=== PATIENT | female | born 1990 | race Caucasian/White ===

== ENCOUNTER → 2017-10-01 | Outpatient (CLI) | payer OTHER ==
[2017-10-01 15:11] LABS: BASO % 0.4 % (0.0-1.0); EOS # 0.1 10^3/uL (0.0-0.50); EOS % 0.8 % (0.0-3.0); HEMATOCRIT 37.6 % (36.0-47.0); IMMATURE GRANULOCYTE % 0.1 % (0-3.0); LYMPH % 26.3 % (24.0-44.0); MEAN CORPUSCULAR HEMOGLOBIN 30.7 pg (27.0-33.0); MEAN CORPUSCULAR HGB CONC 34.6 g/dl (32.0-36.5); MEAN CORPUSCULAR VOLUME 88.7 fl (80.0-96.0); MONO # 0.5 10^3/uL (0.0-0.8); NEUTROPHILS # 4.9 10^3/uL (1.8-7.7); NEUTROPHILS % 66.4 % (36.0-66.0); PLATELET COUNT, AUTOMATED 247 10^3/uL (150-450); RED BLOOD COUNT 4.24 10^6/uL (4.00-5.40); RED CELL DISTRIBUTION WIDTH 12.1 % (11.5-14.5); WHITE BLOOD COUNT 7.4 10^3/uL (4.0-10.0)
[2017-10-01 15:49] LABS: ALBUMIN 3.6 GM/DL (3.2-5.2); ALBUMIN/GLOBULIN RATIO 0.92 (1.00-1.93); ALKALINE PHOSPHATASE 45 U/L (45-117); ALT/SGPT 15 U/L (12-78); ANION GAP 9 MEQ/L (8-16); AST/SGOT 12 U/L (7-37); BILIRUBIN,TOTAL 1.4 MG/DL (0.2-1.0); BLOOD UREA NITROGEN 9 MG/DL (7-18); CALCIUM LEVEL 8.6 MG/DL (8.5-10.1); CARBON DIOXIDE LEVEL 27 MEQ/L (21-32); CHLORIDE LEVEL 106 MEQ/L (98-107); CREATININE FOR GFR 0.76 MG/DL (0.55-1.30); GLOMERULAR FILTRATION RATE > 60.0 (>60); GLUCOSE, FASTING 84 MG/DL (70-100); POTASSIUM SERUM 4.2 MEQ/L (3.5-5.1); SODIUM LEVEL 142 MEQ/L (136-145); TOTAL PROTEIN 7.5 GM/DL (6.4-8.2)
[2017-10-04 00:06] LABS: EBV VIRAL CAPSID AG IgG >600.0 U/mL (0.0-17.9)
[2017-10-04 00:06] LABS: EBV VIRAL CAPSID AG IgM <36.0 U/mL (0.0-35.9)
== END ==
LOC: M WUC 14:18
DX: J03.90 Acute tonsillitis, unspecified (principal); R21 Rash and other nonspecific skin eruption
CPT/HCPCS: 80053

== ENCOUNTER 2017-12-30 15:32 | Day surgery (SDC) | payer OTHER ==
[2017-12-30 17:13] LABS: CONTROL LINE HCG INT CTR LINE PRESENT; HCG, SERUM QUALITATIVE NEGATIVE (NEGATIVE)
[2017-12-30 17:18] LABS: BASO % 0.3 % (0.0-1.0); EOS % 0.1 % (0.0-3.0); HEMATOCRIT 36.8 % (36.0-47.0); HEMOGLOBIN 12.7 g/dl (12.0-15.5); IMMATURE GRANULOCYTE % 0.3 % (0-3.0); LYMPH # 0.6 10^3/uL (1.5-6.5); LYMPH % 8.7 % (24.0-44.0); MEAN CORPUSCULAR HEMOGLOBIN 30.4 pg (27.0-33.0); MEAN CORPUSCULAR HGB CONC 34.5 g/dl (32.0-36.5); MONO # 0.6 10^3/uL (0.0-0.8); MONO % 8.7 % (0.0-5.0); NEUTROPHILS # 5.8 10^3/uL (1.8-7.7); NEUTROPHILS % 81.9 % (36.0-66.0); PLATELET COUNT, AUTOMATED 210 10^3/uL (150-450); RED BLOOD COUNT 4.18 10^6/uL (4.00-5.40); RED CELL DISTRIBUTION WIDTH 12.1 % (11.5-14.5)
[2017-12-30] MEDS: NS 1,000 ML IV ×4 (17:18→23:12)
[2017-12-30] MEDS: MORPHINE 2 MG/ML 1ML SYRINGE (J2270) IV ×6 (17:19→23:12)
[2017-12-30 17:20] LABS: INR 1.04; PROTHROMBIN TIME 13.7 SECONDS (12.1-14.4)
[2017-12-30 17:21] LABS: LACTIC ACID SEPSIS PROTOCOL 0.9 MMOL/L (0.4-2.0)
[2017-12-30 17:23] LABS: ALBUMIN 3.5 GM/DL (3.2-5.2); ALBUMIN/GLOBULIN RATIO 0.97 (1.00-1.93); ALKALINE PHOSPHATASE 48 U/L (45-117); ALT/SGPT 18 U/L (12-78); AMYLASE 43 U/L (25-115); ANION GAP 11 MEQ/L (8-16); AST/SGOT 16 U/L (7-37); BILIRUBIN,DIRECT 0.2 MG/DL (0.0-0.2); BILIRUBIN,TOTAL 0.9 MG/DL (0.2-1.0); BLOOD UREA NITROGEN 8 MG/DL (7-18); CALCIUM LEVEL 8.3 MG/DL (8.5-10.1); CARBON DIOXIDE LEVEL 24 MEQ/L (21-32); CHLORIDE LEVEL 103 MEQ/L (98-107); CK-MB VALUE MASS < 1.0 NG/ML (<3.6); CPK CREATINE PHOSPHOKINASE 58 U/L (26-192); CREATININE FOR GFR 0.79 MG/DL (0.55-1.30); GLOMERULAR FILTRATION RATE > 60.0 (>60); GLUCOSE, FASTING 89 MG/DL (70-100); LIPASE 84 U/L (73-393); MB/CK RELATIVE INDEX 1.72 (< OR =4); POTASSIUM SERUM 3.7 MEQ/L (3.5-5.1); SODIUM LEVEL 138 MEQ/L (136-145); TOTAL PROTEIN 7.1 GM/DL (6.4-8.2); TROPONIN I < 0.02 NG/ML (< 0.10)
[2017-12-30 17:24] LABS: PARTIAL THROMBOPLASTIN TIME 32.3 SECONDS (25.4-37.6)
[2017-12-30] MEDS ORDERED: ISOVUE-370 76% 100ML VIAL (Q9967) As Ordered ×2 (17:34)
[2017-12-30 17:39] LABS: KETONE, URINE AUTO RFX NEGATIVE (NEGATIVE); LEUKOCYTE ESTERASE UR AUTO RFX NEGATIVE (NEGATIVE); NITRITE, URINE AUTO RFX NEGATIVE (NEGATIVE); RBC, URINE AUTO RFX 1 /HPF (0-3); SPECIFIC GRAVITY UR AUTO RFX 1.003 (1.002-1.035); SQUAM EPITHELIAL CELL UR AURFX 2 /HPF (0-6); WBC, URINE AUTO RFX 0 /HPF (0-3)
[2017-12-30] MEDS: GASTROGRAFIN SOLUTION 30ML PO ×4 (20:44→21:10)
[2017-12-30 20:56] LABS: CHLAMYDIA DNA AMPLIFICATION NEGATIVE (NEGATIVE); GC DNA AMPLIFICATION NEGATIVE (NEGATIVE)
[2017-12-30] MEDS: ACETAMINOPHEN TAB 650MG DOSE (2X325MG) PO ×2 (22:17)
[2017-12-30] MEDS ORDERED: MORPHINE 2 MG/ML 1ML SYRINGE (J2270) IV ×2 (23:00)
[2017-12-31] MEDS ORDERED: ROCURONIUM BROMIDE 50 MG/5 ML VIAL As Ordered ×2 (01:13)
[2017-12-31] MEDS ORDERED: LIDOCAINE 2% INJ 100 MG/5 ML SDV (FOR ANES.) As Ordered ×2 (01:13)
[2017-12-31] MEDS ORDERED: fentaNYL 100 MCG/2 ML INJECTION (J3010) As Ordered ×6 (01:13→03:10)
[2017-12-31] MEDS ORDERED: ONDANSETRON 4MG/2ML VIAL (J2405) As Ordered ×2 (01:13)
[2017-12-31] MEDS ORDERED: PROPOFOL 200 MG/20 ML VIAL As Ordered ×2 (01:13)
[2017-12-31] MEDS ORDERED: dexameTHASONE 4 MG/ML 1ML VIAL (J1100) As Ordered ×2 (01:13)
[2017-12-31] MEDS ORDERED: MIDAZOLAM INJ 2 MG/2 ML VIAL (J2250) As Ordered ×2 (01:13)
[2017-12-31] MEDS: ACETAMINOPHEN 650 MG SUPP As Ordered ×2 (01:25)
[2017-12-31] MEDS: ceFAZolin 1GM INJ (J0690 PER 500MG) As Ordered ×2 (01:26)
[2017-12-31] MEDS ORDERED: NEOSTIGMINE 10 MG/10 ML VIAL (J2710) As Ordered ×2 (01:50)
[2017-12-31] MEDS ORDERED: GLYCOPYRROLATE INJ 0.2 MG/ML 2 ML VIAL As Ordered ×2 (01:50)
[2017-12-31] MEDS ORDERED: KETOROLAC 60 MG/2 ML VIAL (J1885) As Ordered ×2 (02:52)
[2017-12-31] MEDS: LR 1,000 ML IV ×2 (03:03)
[2017-12-31] MEDS: BUPIVACAINE HCL 0.5% 10 ML VIAL As Ordered ×2 (03:06)
[2017-12-31] MEDS: fentaNYL 100 MCG/2 ML INJECTION (J3010) IV ×8 (03:10→03:34)
[2017-12-31] MEDS: NORCO, ANEXSIA 5/325MG TABLET (HYDROcodone/ACETAMINOPHEN) PO ×4 (03:10→03:55)
[2017-12-31] MEDS ORDERED: NORCO, ANEXSIA 5/325MG TABLET (HYDROcodone/ACETAMINOPHEN) As Ordered ×4 (03:10→03:47)
[2017-12-31] MEDS: ONDANSETRON 4MG/2ML VIAL (J2405) IV ×2 (04:08)
[2017-12-31] MEDS ORDERED: ACETAMINOPHEN TAB 650MG DOSE (2X325MG) PO ×2 (07:45)
[2017-12-31] MEDS: PERCOCET 5MG/325MG TAB PO ×2 (08:10)
[2017-12-31] MEDS: IBUPROFEN 800 MG TAB PO ×2 (12:57)
== END 2017-12-31 14:00 | disposition home or self-care (01) ==
LOC: M SDC 12-31 00:30 → M PED 12-31 14:00 → M SDC 12-31 04:05 → M PED 12-31 04:05 → M SDC 15:34 → M PED 12-31 04:10 → M SDC 12-31 14:00 → M ED 15:32
DX: K35.89 Other acute appendicitis (principal)
CPT/HCPCS: 44970

== ENCOUNTER → 2018-05-14 | Outpatient (REF) | payer OTHER ==
[~2018-05-14] MED LIST: ACET1TAB55 PO; APAP325T4 PO; HAIR1TAB5 PO; MOTR200T44 PO; PERC5TAB12 PO; XULA1DIS TOP
[2018-05-14 23:15] LABS: CHLAMYDIA DNA AMPLIFICATION NEGATIVE (NEGATIVE); GC DNA AMPLIFICATION NEGATIVE (NEGATIVE)
== END ==
LOC: M LAB REF 15:17
PROVIDERS: ATTEND Physician Assistant
DX: Z11.3 Encounter for screening for infections with a predominantly sexual mode of transmission (principal)

== ENCOUNTER → 2018-12-21 | Outpatient (CLI) | payer OTHER ==
--- NOTE | 2018-12-21 14:30 | REP ---
Urinary tract sonogram: History: Back pain and unexplained hematuria at 12 weeks gestation. No history of kidney stones. Comparison: No comparison study. Findings: Scanning at the level of the urinary bladder shows no abnormality. Emptying ureteral jets are confirmed from both ureters on color Doppler interrogation of the bladder lumen. Renal cortical echogenicity pattern is normal bilaterally and contours are smooth. There is no evidence of hydronephrosis, cyst, mass, or calculus in either kidney. The right kidney measures 11.2 x 4.1 x 3.2 cm. Left renal dimensions are 12.5 x 4.5 x 3.7 cm. Impression: Normal urinary tract sonography. Electronically Signed by Moise Aquino MD 12/21/2018 02:21 P
== END ==
LOC: M RAD 13:20
PROVIDERS: ATTEND Registered Nurse Maternal Newborn
DX: M54.9 Dorsalgia, unspecified (principal); R31.9 Hematuria, unspecified

== ENCOUNTER → 2019-03-09 | Outpatient (REF) | payer OTHER | LOC: M LAB REF 08:58 | PROVIDERS: ATTEND Physician Assistant | DX: J02.0 Streptococcal pharyngitis (principal) ==

== ENCOUNTER 2019-06-21 05:37 | Outpatient (CLI) | payer OTHER ==
[~2019-06-21] VITALS: Ht 162.6 cm; Wt 75.5 kg
[2019-06-21 05:56] VITALS: BP 121/69
[2019-06-21] MEDS ORDERED: PRENTAB9 PO (06:38)
[2019-06-21 07:22] VITALS: BP 131/76
[2019-06-21 08:14] VITALS: BP 114/55
--- NOTE | 2019-06-21 14:25 | IPN ---
DATE: 06/21/2019 This lady is a 28-year-old, 2, para 1, LMP 09/21/2019, EDC 06/27/2019, history of prodromal contractions. She was at 0600 hours was 2 cm posterior and she has been like that for 4 hours. Category 1 strip. No vaginal bleeding or loss. Risk factors issues mixed incontinence and in her past history she had what was described here as a borderline PPH although there is no details. Past history in 07/2014 at 42 weeks spontaneous vaginal delivery, female 8 pounds 3 ounces. Labs are A+, HIV negative, hep negative, RPR negative, rubella immune. Varicella immune. Pap normal. Urine negative. Gonorrhea and chlamydia are negative. 1-hour glucose was 103. GBS is negative. She had a spot protein ratio of 0.3 and a 24-hour urine protein of 150. On examination no distress. Symphysis fundus height is 40, vertex OP 2 cm posterior thick. No vaginal bleeding or loss. Category 1 strip. Intermittent contractions. Blood pressure 114/55, respirations 18, pulse 71, temperature 98.4. No urine is available. In summary we have a lady with prodromal labor at 39+ weeks of gestation. Discharge instructions were given. She has an appointment in 3 days with Ronal Betancourt OB she was recommended to return if she has ruptured membranes, contractions 5-7 minutes apart 40 seconds or vaginal bleeding, or decreased movement of less than 10 at 24 hours. The patient expressed understanding. All questions were answered. 40 minute discussion. cc: Ayde Betancourt
[2019-06-22] MEDS ORDERED: MAPA500T2 PO (02:03)
== END 2019-06-21 09:05 | disposition home or self-care (01) ==
LOC: M LDO 05:37
PROVIDERS: ATTEND Obstetrics & Gynecology
DX: O62.2 Other uterine inertia (principal); Z3A.39 39 weeks gestation of pregnancy
CPT/HCPCS: 59025; G0378; G0463

== ENCOUNTER 2019-06-22 01:04 | Inpatient (IN) | payer OTHER ==
[2019-06-22] VITALS (9 sets, daily range): BP systolic 108–147; BP diastolic 57–87
[~2019-06-22] VITALS: Ht 162.6 cm; Wt 75.9 kg
[~2019-06-22 01:04] MED LIST changes: +PRENTAB9 PO
[2019-06-22] MEDS ORDERED: LR 1,000 ML IV SCH ×2 (02:00→03:06)
[2019-06-22] MEDS ORDERED: MAPA500T2 PO (02:03)
[2019-06-22 02:05] LABS: HEMATOCRIT 34.5 % (36.0-47.0); HEMOGLOBIN 11.6 g/dl (12.0-15.5); MEAN CORPUSCULAR HGB CONC 33.6 g/dl (32.0-36.5); MEAN CORPUSCULAR VOLUME 86.3 fl (80.0-96.0); PLATELET COUNT, AUTOMATED 240 10^3/uL (150-450); WHITE BLOOD COUNT 12.4 10^3/uL (4.0-10.0)
[2019-06-22] MEDS ORDERED: OXYTOCIN 30 UNITS IN 0.9% NaCl 500ML IV BAG (J2590) As Ordered ONE (02:14)
[2019-06-22] MEDS ORDERED: PROMETHAZINE INJ 25 MG/ML VIAL (J2550) IM ONE (02:45)
[2019-06-22] MEDS ORDERED: BUTORPHANOL 2 MG/ML INJ (J0595) IV ONE (02:45)
[2019-06-22] MEDS ORDERED: OXYTOCIN INJ 10 UNITS/ML VIAL (J2590) IV ONE (03:15)
[2019-06-22] MEDS ORDERED: METHYLERGONOVINE MALEATE 0.2 MG TAB PO PRN (03:15)
[2019-06-22] MEDS ORDERED: MEASLES,MUMPS,RUBELLA VACCINE INJ (MMR-II) (90707) SC SCH (03:15)
[2019-06-22] MEDS ORDERED: DIBUCAINE 1% OINTMENT 30GM TOP PRN (03:15)
[2019-06-22] MEDS ORDERED: RHOGAM 300 MCG (1500 IU) INJ (J2790) IM SCH (03:15)
[2019-06-22] MEDS ORDERED: ACETAMINOPHEN 500 MG TAB PO PRN (03:15)
[2019-06-22] MEDS ORDERED: ANUSOL HC CREAM 30GM TOP PRN (03:15)
[2019-06-22] MEDS ORDERED: OXYTOCIN DRIP 30 UNITS in IV 1 EA IV ONE (03:15)
[2019-06-22] MEDS ORDERED: MOM 30ML SUSPENSION UDC PO PRN (03:15)
[2019-06-22] MEDS ORDERED: ACETAMINOPHEN TAB 650MG DOSE (2X325MG) PO PRN (03:15)
[2019-06-22] MEDS ORDERED: DOCUSATE SODIUM 100 MG CAP PO PRN (03:15)
[2019-06-22] MEDS ORDERED: IBUPROFEN 600 MG TAB PO PRN (03:15)
[2019-06-22 03:44] LABS: CORD GAS ABE V -2.4; CORD GAS HCO3 V 20.7 MEQ/L; CORD GAS O2 SAT V 66.9 %; CORD GAS PCO2 V 32.1 mmHg; CORD GAS PH V 7.428 UNITS; CORD GAS PO2 V 26.5 mmHg; CORD GAS SBC V 21.6 MEQ/L; CORD GAS TCO2 V 21.7 MEQ/L
[2019-06-22 03:47] LABS: CORD GAS HCO3 A 22.2 MEQ/L; CORD GAS O2 SAT A 46.8 %; CORD GAS PCO2 A 44.8 mmHg; CORD GAS PH A 7.313 UNITS; CORD GAS PO2 A 22.1 mmHg; CORD GAS TCO2 A 23.6 MEQ/L
[2019-06-22] MEDS: IBUPROFEN 800 MG TAB PO PRN (03:50)
[2019-06-22] MEDS ORDERED: OXYTOCIN INJ 10 UNITS/ML VIAL (J2590) As Ordered ONE (04:32)
[2019-06-22] MEDS ORDERED: SLF 3 ML SYR IV PRN (07:45)
[2019-06-22] MEDS: PRENATAL VITAMINS CHEWABLE TABLET PO SCH (08:17)
[2019-06-22] MEDS: SLF 3 ML SYR IV SCH ×3 (08:19→22:00)
--- NOTE | 2019-06-22 11:50 | HPE ---
DATE OF ADMISSION: 06/22/2019 28-year-old 2, para 1, last period 09/20/2018, EDC 06/27/2019 at 39+ weeks of gestation, spontaneous labor, 6 cm with bulging member membranes. Risk factors is has mixed incontinence and had a previous cervical laceration because of uncontrolled pushing. LABORATORIES: A+, HIV negative, hepatitis negative, RPR negative, rubella immune. Varicella immune. Pap normal. Urine negative. Gonorrhea and chlamydia negative. 1-hour glucose 103. GBS is negative. PAST HISTORY: In 2014 at 42 weeks spontaneous vaginal delivery, had a cervical laceration, female 8 pounds 3 ounces. Presently, she is distressed at 8 cm, bulging membranes uncontrollable pushing. Hemoglobin 11.6, hematocrit 34.6, platelets are 240. Blood pressure 130/71, pulse 74, respirations 18, temperature 97.8. We have a term gestation with uncontrolled pushing for imminent delivery.
--- NOTE | 2019-06-22 15:22 | DN ---
DATE: 06/22/2019 A 28-year-old 1, para 1, admitted in active spontaneous labor, involuntarily pushing at 8 cm, at full dilatation. Had spontaneous rupture of membranes. Precipitously delivered a live- female weighing 8 pounds 1 ounce, 3670 grams, scores of 9 and 9 at one and five minutes, respectively. Arterial and venous pH were performed. They are not yet available. Placenta delivered spontaneously thereafter, a 3-vessel cord. Membranes and tissues intact. Baby had terminal meconium and voided at delivery. The uterus contracted well down on Pitocin. She had some bruising in the fourchette but otherwise no tears or lacerations. Sphincter was intact. Anterior, posterior, and lateral souza were intact. The patient and baby tolerating procedure well.
[2019-06-23 06:00] VITALS: BP 116/59
[2019-06-23] MEDS: SLF 3 ML SYR IV SCH ×2 (06:00→14:00)
[2019-06-23] MEDS: PRENATAL VITAMINS CHEWABLE TABLET PO SCH (07:23)
[2019-06-23 07:57] LABS: HEMATOCRIT 31.5 % (36.0-47.0); HEMOGLOBIN 10.4 g/dl (12.0-15.5); MEAN CORPUSCULAR HEMOGLOBIN 29.3 pg (27.0-33.0); MEAN CORPUSCULAR VOLUME 88.7 fl (80.0-96.0); PLATELET COUNT, AUTOMATED 204 10^3/uL (150-450); RED BLOOD COUNT 3.55 10^6/uL (4.00-5.40)
--- NOTE | 2019-06-23 08:31 | IPNPDOC ---
Progress Note Date of Service: Jun 23, 2019 Day#: 1 Progress Note SUBJECT: Corinne is a 28-year-old 2 now Para 2002 status post uncomplicated spontaneous vaginal delivery at 39+1/7 weeks on 22 June 2019 of a female, 3670 grams, intact, doing well day #1. She has been ambulating, voiding spontaneously without issue and tolerating regular diet. Breast feeding without issue, some formula supplementation. Reports lochia is normal. OBJECTIVE: VITAL SIGNS: Within normal limits, afebrile. Alert and oriented times three. Observed nonlabored breathing. Abdomen: Fundus firm at U. Soft, NTTP. Minimal lochia. ASSESSMENT: PP Day #1, normal involution, stable and progressing well. with formula supplementation. Declines BC at this time; will discuss at her PP appointment. PLAN: 1. Discharge to home today. 2. Tylenol and Motrin for pain. 3. Encourage breast feeding and ambulation. 4. Routine PP visit in 6 weeks in clinic. 5. Discussed return precautions at length. VS, I&O, 24H, Fishbone Vital Signs/I&O Vital Signs Date Time Temp Pulse Resp B/P (MAP) Pulse Ox O2 Delivery O2 Flow Rate FiO2 06/23/19 06:00 98.4 70 17 116/59 (78) 97 Room Air I&O- Last 24 Hours up to 6 AM 06/23/19 06:00 Intake Total 360 ml Output Total 900 ml Balance -540 ml Laboratory Data 24H LABS Laboratory Tests 2 06/23/19 07:31: Nucleated Red Blood Cells % (auto) 0.0 CBC/BMP Laboratory Tests 06/23/19 07:31 KARINA BARTH CNM Jun 23, 2019 08:31
[2019-06-23] MEDS ORDERED: IBUP-1022 PO (08:45)
[2019-06-23] MEDS ORDERED: DIBU10OI TOP (08:45)
[2019-06-23] MEDS ORDERED: DOCU100C16 PO (08:45)
[2019-06-23] MEDS ORDERED: ACET1TAB55 PO (08:45)
--- NOTE | 2019-06-23 08:47 | OBDS ---
[facility] Obstetrical Discharge Sum. Obstetrical Discharge Summary Date: Jun 23, 2019 : 2 Term: 2 Pre-term: 0 Abortions: 0 Livin VDRL: Non-Reactive Rubella: Immune Sex: Female Weight: grams (3670) A/P, Post Course List any complications SUBJECT: Corinne is a 28-year-old 2 now Para 2002 status post uncomplicated spontaneous vaginal delivery at 39+1/7 weeks on 22 June 2019 of a female, 3670 grams, intact, doing well day #1. She has been amb ulating, voiding spontaneously without issue and tolerating regular diet. Breast feeding without issue, some formula supplementation. Reports lochia is normal. OBJECTIVE: VITAL SIGNS: Within normal limits, afebrile. Alert and oriented times three. Observed nonlabored breathing. Abdomen: Fundus firm at U. Soft, NTTP. Minimal lochia. ASSESSMENT: PP Day #1, normal involution, stable and progressing well. with formula supplementation. Declines BC at this time; will discuss at her PP appointment. PLAN: 1. Discharge to home today. 2. Tylenol and Motrin for pain. 3. Encourage breast feeding and ambulation. 4. Routine PP visit in 6 weeks in clinic. 5. Discussed return precautions at length. KARINA BARTH CNM Jun 23, 2019 08:46
[2019-06-23] MEDS: IBUPROFEN 800 MG TAB PO PRN (10:08)
== END 2019-06-23 14:05 | disposition home or self-care (01) | DRG 807 ==
LOC: M LDO 01:04 → M LDI 01:39 → M OBS 08:35
PROVIDERS: ADMIT Obstetrics & Gynecology; ATTEND Obstetrics & Gynecology
PROC: 10E0XZZ Delivery of Products of Conception, External Approach (ICD-10-PCS; principal; 2019-06-22)
DX: O62.3 Precipitate labor (principal); Z37.0 Single live birth; Z3A.39 39 weeks gestation of pregnancy

== ENCOUNTER → 2020-06-01 | Outpatient (CLI) | payer SELFPAY ==
[~2020-06-01] MED LIST changes: +DIBU10OI TOP; +DOCU100C16 PO; +IBUP-1022 PO; +MAPA500T2 PO
== END ==
LOC: M LABSMTC 12:14
PROVIDERS: ATTEND Pediatrics
DX: Z20.822 Contact with and (suspected) exposure to COVID-19 (principal)

== ENCOUNTER → 2020-10-24 | Outpatient (CLI) | payer SELFPAY ==
[~2020-10-24] MED LIST changes: -DIBU10OI TOP; +DIBU28OI2 TOP
== END ==
LOC: M LABSMTC 10:07
PROVIDERS: ATTEND Pediatrics
DX: Z20.822 Contact with and (suspected) exposure to COVID-19 (principal)

== ENCOUNTER → 2021-12-20 | Outpatient (CLI) | payer OTHER, SELFPAY ==
[~2021-12-20] MED LIST changes: +CETI10CH PO; +FLUO10CA18 PO; +MULT-40 PO
== END ==
LOC: M LABSMTC 09:50
PROVIDERS: ATTEND Anesthesiology
DX: Z01.818 Encounter for other preprocedural examination (principal); Z11.52 Encounter for screening for COVID-19

== ENCOUNTER 2021-12-23 07:32 | Day surgery (SDC) | payer OTHER ==
[~2021-12-23] VITALS: Ht 162.6 cm; Wt 59.0 kg
[2021-12-23] MEDS ORDERED: LR 1,000 ML IV SCH ×3 (08:05→10:50)
[2021-12-23] MEDS ORDERED: ROCURONIUM BROMIDE 50 MG/5 ML VIAL As Ordered ONE (08:34)
[2021-12-23] MEDS ORDERED: propofoL 200 MG/20 ML VIAL As Ordered ONE (08:34)
[2021-12-23] MEDS ORDERED: fentaNYL 250 MCG/5 ML INJECTION As Ordered ONE (08:34)
[2021-12-23] MEDS ORDERED: MIDAZOLAM INJ 2MG/2ML VIAL (J2250 PER 1MG) As Ordered ONE (08:34)
[2021-12-23] MEDS ORDERED: LIDOCAINE 2% 100MG/5ML SDV (FOR ANES.) As Ordered ONE (08:34)
[2021-12-23] MEDS ORDERED: BUPIVACAINE/EPIN 0.5% 30 ML VIAL As Ordered ONE (10:02)
[2021-12-23] MEDS ORDERED: ACETAMINOPHEN 1000MG 100ML IV BTL (OFIRMEV) (J0131 PER 10MG) As Ordered ONE (10:14)
[2021-12-23] MEDS ORDERED: ONDANSETRON 4MG 2ML VIAL As Ordered ONE (10:14)
[2021-12-23] MEDS ORDERED: dexameTHASONE 4 MG/ML 1ML VIAL (J1100 PER 1MG) As Ordered ONE (10:14)
[2021-12-23] MEDS ORDERED: SUGAMMADEX SODIUM 500 MG/5 ML VIAL (BRIDION) As Ordered ONE (10:20)
[2021-12-23] MEDS ORDERED: METOCLOPRAMIDE INJ 10MG/2ML VIAL (J2765 PER 1) IV PRN (10:30)
[2021-12-23] MEDS ORDERED: fentaNYL 100 MCG/2 ML INJECTION IV PRN (10:30)
[2021-12-23] MEDS ORDERED: oxyCODONE 5MG TAB PO PRN (10:30)
[2021-12-23] MEDS ORDERED: ONDANSETRON 4MG 2ML VIAL IV PRN ×2 (10:30→10:50)
[2021-12-23] MEDS ORDERED: HYDROcodone/APAP LIQUID 7.5-325MG 15ML UDC (LORTAB ELIXIR) PO PRN (10:50)
[2021-12-23 12:20] VITALS: BP 118/68
== END 2021-12-23 12:30 | disposition home or self-care (01) ==
LOC: M SDC 07:32
PROVIDERS: ATTEND Otolaryngology
DX: J35.03 Chronic tonsillitis and adenoiditis (principal); D64.9 Anemia, unspecified; Z79.899 Other long term (current) drug therapy
CPT/HCPCS: 42821; 81025; 88302; J0131; J1100; J2250; J2405; J3010

== ENCOUNTER → 2022-04-15 | Outpatient (REF) | payer OTHER, MEDICAID | LOC: M LAB REF 16:07 | PROVIDERS: ATTEND Physician Assistant | DX: Z12.4 Encounter for screening for malignant neoplasm of cervix (principal); Z11.59 Encounter for screening for other viral diseases; Z11.3 Encounter for screening for infections with a predominantly sexual mode of transmission ==

== ENCOUNTER → 2022-04-29 | Outpatient (CLI) | payer OTHER | LOC: M WHC 14:06 | PROVIDERS: ATTEND Physician Assistant | DX: N94.12 Deep dyspareunia (principal) ==

== ENCOUNTER → 2022-05-26 | Outpatient (CLI) | payer BC | LOC: M EKG 09:53 | PROVIDERS: ATTEND Physician Assistant | DX: R00.2 Palpitations (principal) ==

== ENCOUNTER → 2022-07-01 | Outpatient (CLI) | payer BC ==
[2022-07-01 14:15] LABS: HEMATOCRIT 38.1 % (36.0-47.0); HEMOGLOBIN 12.7 g/dl (12.0-15.5); MEAN CORPUSCULAR HEMOGLOBIN 29.8 pg (27.0-33.0); MEAN CORPUSCULAR HGB CONC 33.3 g/dl (32.0-36.5); MEAN CORPUSCULAR VOLUME 89.4 fl (80.0-96.0); PLATELET COUNT, AUTOMATED 218 10^3/uL (150-450); RED BLOOD COUNT 4.26 10^6/uL (4.00-5.40); WHITE BLOOD COUNT 7.1 10^3/uL (4.0-10.0)
[2022-07-01 14:47] LABS: BLOOD UREA NITROGEN 9 MG/DL (9-23); CALCIUM LEVEL 9.1 MG/DL (8.5-10.1); CARBON DIOXIDE LEVEL 28 MMOL/L (20-31); CHLORIDE LEVEL 107 MMOL/L (98-107); CREATININE FOR GFR 0.65 MG/DL (0.55-1.30); GLOMERULAR FILTRATION RATE > 60.0 (>60); GLUCOSE, FASTING 77 MG/DL (60-100); POTASSIUM SERUM 4.4 MMOL/L (3.5-5.1); SODIUM LEVEL 140 MMOL/L (136-145); THYROID STIMULATING HORMONE 0.656 uIU/ML (0.55-4.78)
== END ==
LOC: M LAB 11:48
PROVIDERS: ATTEND Physician Assistant
DX: R00.2 Palpitations (principal)

== ENCOUNTER → 2022-07-06 | Outpatient (REF) ==
[2022-07-06 14:24] LABS: RSV AMPLIFICATION NEGATIVE (NEGATIVE)
== END ==
LOC: M LABSMTC 09:37
PROVIDERS: ATTEND Family Medicine
DX: Z20.822 Contact with and (suspected) exposure to COVID-19 (principal)

== ENCOUNTER → 2024-06-10 | Outpatient (CLI) | payer OTHER ==
[~2024-06-10] MED LIST changes: +FLUO-290 PO; -FLUO10CA18 PO; +PROHANCE 279.3MG/ML 15ML VIAL As Ordered ONE
== END ==
LOC: M RAD 10:38
PROVIDERS: ATTEND Physician Assistant
DX: R53.83 Other fatigue (principal); Z86.2 Personal history of diseases of the blood and blood-forming organs and certain disorders involving the immune mechanism; Z13.1 Encounter for screening for diabetes mellitus; H53.2 Diplopia; M62.81 Muscle weakness (generalized); R51.9 Headache, unspecified; H93.13 Tinnitus, bilateral
CPT/HCPCS: 70553; A9576

== ENCOUNTER → 2024-08-06 | Outpatient (REF) | payer OTHER ==
[~2024-08-06] MED LIST changes: -PROHANCE 279.3MG/ML 15ML VIAL As Ordered ONE
[2024-08-06 13:53] LABS: CPK CREATINE PHOSPHOKINASE 50 U/L (34-145)
[2024-08-06 13:54] LABS: RHEUMATOID FACTOR QUANT < 3.5 IU/ML (<14)
[2024-08-07 15:53] LABS: ANA SCREEN, IFA NEGATIVE (NEGATIVE)
[2024-08-08 03:02] LABS: IgG P18 AB NON-REACTIVE; IgG P23 AB NON-REACTIVE; IgG P28 AB NON-REACTIVE; IgG P30 AB NON-REACTIVE; IgG P39 AB NON-REACTIVE; IgG P41 AB NON-REACTIVE; IgG P45 AB NON-REACTIVE; IgG P58 AB NON-REACTIVE; IgG P66 AB NON-REACTIVE; IgG P93 AB NON-REACTIVE; IgM P23 AB NON-REACTIVE; IgM P39 AB NON-REACTIVE; IgM P41 AB NON-REACTIVE; LYME IgG WB INTERPRETATION NEGATIVE (NEGATIVE); LYME IgM WB INTERPRETATION NEGATIVE (NEGATIVE)
== END ==
LOC: M LAB REF 12:24
PROVIDERS: ATTEND Psychiatry & Neurology Neurology
DX: R53.1 Weakness (principal)

== ENCOUNTER → 2024-08-07 | Outpatient (CLI) | payer OTHER | LOC: M LAB 16:53 | PROVIDERS: ATTEND Psychiatry & Neurology Neurology | DX: R53.1 Weakness (principal) ==

== ENCOUNTER → 2024-08-09 | Outpatient (CLI) | payer OTHER | LOC: M LAB 12:45 | PROVIDERS: ATTEND Psychiatry & Neurology Neurology | DX: R53.1 Weakness (principal) ==

== ENCOUNTER → 2025-03-26 | Outpatient (CLI) | payer OTHER ==
[~2025-03-26] MED LIST changes: -IBUP-1022 PO; +IBUP600T42 PO
== END ==
LOC: M WHC 08:34
PROVIDERS: ATTEND Advanced Practice Midwife
DX: N64.4 Mastodynia (principal)